=== PATIENT | male | born 1955 | race Caucasian/White ===

== ENCOUNTER 2017-08-03 11:02 | Emergency (ER) | payer BC, OTHER ==
[~2017-08-03] VITALS: Ht 185.4 cm; Wt 133.8 kg
[2017-08-03] MEDS ORDERED: METF1000 PO (11:31)
[2017-08-03] MEDS ORDERED: KETOROLAC 30 MG/ML VIAL IVP STA (11:31)
[2017-08-03] MEDS ORDERED: LISI10TA2 PO (11:31)
[2017-08-03] MEDS ORDERED: SITA25TA5 PO (11:31)
[2017-08-03] MEDS ORDERED: ATOR10TA PO (11:31)
[2017-08-03] MEDS ORDERED: NS IV 1000 ML 1,000 ML IV ONE (11:31)
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
[2017-08-03 12:11] LABS: BILIRUBIN,URINE NEGATIVE (NEGATIVE); CLARITY,URINE CLEAR; COLOR,URINE YELLOW; GLUCOSE, URINE (UA) 2+ (NEGATIVE); KETONES,URINE 2+ (NEGATIVE); LEUKOCYTE ESTERASE ,URINE NEGATIVE (NEGATIVE); NITRITE,URINE NEGATIVE (NEGATIVE); PH,URINE 5 (5-9); PROTEIN,URINE NEGATIVE (NEGATIVE); UROBILINOGEN,URINE NORMAL (NORMAL)
[2017-08-03] MEDS ORDERED: ONDA8TAB13 PO (12:14)
[2017-08-03] MEDS ORDERED: HYDR-3820 PO (12:14)
[2017-08-03] MEDS ORDERED: PHEN-640 PO (12:14)
[2017-08-03] MEDS ORDERED: CIPR500T4 PO (12:14)
[2017-08-03] MEDS ORDERED: TAMS0.4C98 PO (12:14)
[2017-08-03 12:40] LABS: BACTERIA,URINE NEGATIVE /HPF; RBC,URINE >100 /HPF; SQUAMOUS EPITHELIAL CELL,UR RARE /HPF; WBC,URINE 0-2 /HPF
[2017-08-03 12:58] VITALS: BP 136/77
== END 2017-08-03 12:58 | disposition home or self-care (01) ==
LOC: ER 11:11
DX: N20.1 Calculus of ureter (principal); E86.9 Volume depletion, unspecified; E78.00 Pure hypercholesterolemia, unspecified; I10 Essential (primary) hypertension; E11.9 Type 2 diabetes mellitus without complications; Z79.84 Long term (current) use of oral hypoglycemic drugs
CPT/HCPCS: 81000; 99282